=== PATIENT | male | born 1955 | race Caucasian/White ===

== ENCOUNTER 2016-12-13 09:24 | Outpatient (CLI) | payer BC ==
--- NOTE | 2016-12-13 11:44 | MRI ---
BRAIN MRI WITH AND WITHOUT CONTRAST: Date: 12/13/16 COMPARISON: 08/11/10. CLINICAL HISTORY: Migraine headache with aura, intractable. FINDINGS: The ventricular system is within normal limits. Septum pellucidum and third ventricle are midline. T here is no evidence of acute territorial infarction, intracranial mass effect, midline shift, or hem orrhage susceptibility. There is minute signal alteration of the cerebral white matter, not atypical for patient's age. No enhancing intra-axial lesion. Imaged skull base flow-voids are patent. There is mild mucosal thickening of the paranasal sinuses. IMPRESSION: No acute intracranial abnormalities. POS: [facility]
[2016-12-13] MEDS ORDERED: Gadobenate Dimeglumine 529 MG/1 ML (20ML VIAL) ONE (16:12)
== END 2016-12-13 09:25 | disposition home or self-care (01) ==
LOC: MRI 09:24
PROVIDERS: ATTEND Psychiatry & Neurology Neurology
DX: G43.019 Migraine without aura, intractable, without status migrainosus (principal)
CPT/HCPCS: 70553; A9579

== ENCOUNTER 2016-12-14 12:26 | Outpatient (CLI) | payer BC ==
--- NOTE | 2016-12-14 20:50 | MRI ---
EXAM: MRI THORACIC SPINE WITH AND WITHOUT CONTRAST 12/14/16 HISTORY: Syrinx of the spinal cord. COMPARISON: . TECHNIQUE: A thoracic spine MRI is performed with and without intravenous gadolinium administration. Multiseque ntial, multiplanar imaging is performed. FINDINGS: There is appropriate T1 marrow signal intensity of the thoracic vertebrae. Thoracic spine vertebral body height is maintained. There is no fracture. No significant STIR hyperintensities to suggest thalia tebral body edema or ligamentous injury. On the sagittal postcontrast images there is no evidence of abnormal enhancement of the vertebral bodies. The thoracic cord has an overall normal size and signal intensity. There is no evidence of cord expa nsion. 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 This T2 hyperintensity is noted at the T1 level and is no longer seen after the T1-T 2 disc space. T2-T3: Small left paracentral disc bulge deforming the thecal sac and left hemicord. No abnormal sig nal intensity in the cord. The remainder of the thoracic spine does not demonstrate any significant degenerative disc disease. Neural foramina are patent. There are T2 hyperintensities in the visualized liver, likely representing hepatic cysts. Findings a re similar to the previous MRI. IMPRESSION: Small syrinx in the upper thoracic cord. POS: [facility]
--- NOTE | 2016-12-14 20:57 | MRI ---
MRI CERVICAL SPINE WITH AND WITHOUT CONTRAST: 12/14/16 Multiplanar and multisequential imaging cervical spine obtained. Post contrast images were obtained with administration of IV Multihance. HISTORY: Syrinx. Chronic headaches. COMPARISON: Made to MRI cervical spine of 05/26/13. FINDINGS: Cervical vertebrae maintain height and alignment. Cervical cord syrinx at C6 through T1 is unchanged in appearance. There is spondylosis of the C2-3 effacing the anterior subarachnoid space. At C3-4, disc bulge and spondylosis abuts the anterior cord. There is bilateral foraminal narrowing due to facet and uncinate hypertrophy. At C4-5, disc bulge and spondylosis efface the anterior subarachnoid space. At C5-6, disc bulge and spondylosis efface the anterior subarachnoid space and abut the cord. At C6-7, mild disc bulge and spondylosis with mild effacement of the anterior subarachnoid space. No abnormal enhancement within the cord or cervical spine. IMPRESSION: 1. Stable cervical cord syrinx. 2. Disc bulge and spondylitic changes in the cervical spine are again noted. These findings corin ear slightly more pronounced at C2-3, C3-4, and C4-5 when compared to the prior study. These changes at C5-6 are similar to the prior exam. POS: [facility]
== END 2016-12-14 12:27 | disposition home or self-care (01) ==
LOC: SCSMRI 12:26
PROVIDERS: ATTEND Neurological Surgery
DX: G95.0 Syringomyelia and syringobulbia (principal); M46.82 Other specified inflammatory spondylopathies, cervical region
CPT/HCPCS: 72156; 72157

== ENCOUNTER 2024-09-20 10:09 | Outpatient (CLI) | payer MEDICARE | END 2024-09-20 10:10 | disposition home or self-care (01) | LOC: RAD 10:09 | PROVIDERS: ATTEND Internal Medicine Critical Care Medicine | DX: R06.00 Dyspnea, unspecified (principal) | CPT/HCPCS: 71046 ==